=== PATIENT | female | born 1980 | race Caucasian/White ===

== ENCOUNTER 2020-05-25 11:55 | Outpatient (CLI) | payer MEDICAID, SELFPAY | END 2020-05-25 23:59 | disposition home or self-care (01) | LOC: MLB 11:55 → EDSTATUS 06-02 11:30 | PROVIDERS: ATTEND Internal Medicine | DX: Z20.828 Contact with and (suspected) exposure to other viral communicable diseases (principal) | CPT/HCPCS: U0003 ==